=== PATIENT | male | born 1990 | race Caucasian/White ===

== ENCOUNTER 2018-05-06 21:27 | Emergency (ER) | payer BC, SELFPAY ==
[2018-05-06 21:27] VITALS: BP 143/88; PULSE 81; RESP 16; TEMP 36.9; O2SAT 99; BMI 28.5
--- NOTE | 2018-05-06 21:40 | EKG12_ITS ---
Test Reason : CHEST PAIN Blood Pressure : / mmHG Vent. Rate : 074 BPM Atrial Rate : 074 BPM P-R Int : 128 ms QRS Dur : 092 ms QT Int : 384 ms P-R-T Axes : 040 076 016 degrees QTc Int : 426 ms Normal sinus rhythm Normal ECG Confirmed by LONI AARON, JALIL ([id number]), scientific publications editor NKECHI WINCHESTER ([id number]) on 05/11/2018 1:27:22 PM Referred By: ANNE MARIE Confirmed By:JALIL IVEY MD
[2018-05-06] MEDS: Ketorolac 30 MG/ML Syringe IM (22:09)
--- NOTE | 2018-05-06 22:10 | RAD_ITS ---
STUDY: X-RAY CHEST REASON FOR EXAM: Male, 27 years old. Right-sided chest pain with deep breathing. TECHNIQUE: 2 views COMPARISON: None. FINDINGS: Negative for pneumothorax, pneumomediastinum or subcutaneous emphysema. The lungs are clear and expanded. There is no demonstrated pleural abnormality. Normal size heart. Normal mediastinum and yasmine. Normal visualized pulmonary arteries. Normal visualized aortic arch and descending thoracic aorta. Normal visualized thoracic spine. Normal visualized ribs, clavicles, and shoulders. There is no demonstrated abnormality of the visualized soft tissue structures of the upper abdomen. RAD/Chest PA and Lateral IMPRESSION: Normal x-ray examination of the chest. Electronically Signed: Zully Barry MD at 22:55 EST , Service support ,
--- NOTE | 2018-05-06 22:56 | ED.VISSUMM ---
- ER Visit Summary Date of Service: 05/06/18 Chief Complaint: Chest pain History of Present Illness: The patient is a 27 M with 2-hour history of sharp stabbing right-sided chest pain worse with movement and bringing his arm up. No history of travel no leg pain calf pain palpitations no fever or chills he denies any shortness of breath. Denies any calf pain. Physical Examination: Otherwise normal exam, patient is clear lungs bilaterally has anterior chest wall pain which is quite reproducible to palpation as well as moving his arm up and way. No rash seen over this region. No calf tenderness or pedal edema. Emergency Department Course and Treatment: Patient has an unremarkable EKG with normal ID QTC intervals, ventricular rate is in the 70s. Chest x-ray is unremarkable this is likely secondary to inflammation I gave him Toradol and I will place him on Naprosyn for home next is likely pleurisy Discharge stable condition Impression: [Pleurisy] This note was generated with [employer] dictation software. It may contain incorrect words, spelling, and punctuation that were not noted in review of the chart prior to signing ED Disposition - Plan for ED Patient: Disposition: Home or Assisted Living Instructions: ED Strain Chest Wall, ED Chest Pain Pleurisy Prescriptions: Naproxen [Naprosyn] 500 mg PO BID PRN #20 tab Referrals: Care Physician,No Primary [Primary Care Provider] -
--- NOTE | 2018-05-06 22:59 | ED.DCSUM_ITS ---
- ER Visit Summary Date of Service: 05/06/18 Chief Complaint: Chest pain History of Present Illness: The patient is a 27 M with 2-hour history of sharp stabbing right-sided chest pain worse with movement and bringing his arm up. No history of travel no leg pain calf pain palpitations no fever or chills he denies any shortness of breath. Denies any calf pain. Physical Examination: Otherwise normal exam, patient is clear lungs bilaterally has anterior chest wall pain which is quite reproducible to palpation as well as moving his arm up and way. No rash seen over this region. No calf tenderness or pedal edema. Emergency Department Course and Treatment: Patient has an unremarkable EKG with normal AR QTC intervals, ventricular rate is in the 70s. Chest x-ray is unremarkable this is likely secondary to inflammation I gave him Toradol and I will place him on Naprosyn for home next is likely pleurisy Discharge stable condition Impression: [Pleurisy] This note was generated with [employer] dictation software. It may contain incorrect words, spelling, and punctuation that were not noted in review of the chart prior to signing ED Disposition - Plan for ED Patient: Disposition: Home or Assisted Living Instructions: ED Strain Chest Wall, ED Chest Pain Pleurisy Prescriptions: Naproxen [Naprosyn] 500 mg PO BID PRN #20 tab Referrals: Care Physician,No Primary [Primary Care Provider] -
[2018-05-06 23:39] VITALS: BP 123/82; PULSE 65; RESP 16; O2SAT 97
== END 2018-05-06 23:40 | disposition home or self-care (01) ==
PROVIDERS: Emergency Provider Emergency Medicine
DX: R09.1 Pleurisy (principal); Z72.0 Tobacco use
CPT/HCPCS: 71046; 93005; 96372; 99283

== ENCOUNTER → 2021-01-23 08:13 | Outpatient (CLI) | payer BC, SELFPAY ==
[2021-01-23 13:21] LABS: Probe Check PASS; Specimen Processing Control PASS
== END ==
PROVIDERS: Referring Provider Student in an Organized Health Care Education/Training Program; Visit Provider Student in an Organized Health Care Education/Training Program
DX: Z11.59 Encounter for screening for other viral diseases (principal)
CPT/HCPCS: 87635; C9803; U0005; U0003

== ENCOUNTER 2021-05-07 14:18 | Outpatient (CLI) | payer BC, SELFPAY | END 2021-05-07 23:59 | disposition short-term general hospital (02) | PROVIDERS: Referring Provider Student in an Organized Health Care Education/Training Program; Visit Provider Student in an Organized Health Care Education/Training Program | DX: Z20.822 Contact with and (suspected) exposure to COVID-19 (principal) | CPT/HCPCS: 87635; U0003; U0005 ==

== ENCOUNTER 2023-09-05 20:09 | Emergency (ER) | payer BC, SELFPAY ==
[2023-09-05 20:10] VITALS: BP 135/88; PULSE 91; RESP 18; TEMP 36.3; O2SAT 95; BMI 26.9
--- NOTE | 2023-09-05 20:26 | CT_ITS ---
EXAM: CT HEAD WITHOUT INTRAVENOUS CONTRAST CLINICAL INDICATION: trauma TECHNIQUE: Multiple axial images were obtained of the head without intravenous contrast. This CT exam was performed using one or more of the following dose reduction techniques: automated exposure control, adjustment of the mA and/or kV according to patient size, and/or use of iterative reconstruction technique. RADIATION DOSE: CTDIvol = 44.99 mGy, DLP = 812.98 mGy-cm COMPARISON: No relevant prior studies available. FINDINGS: BRAIN AND EXTRA-AXIAL SPACES: Unremarkable. No intra- or extra-axial hemorrhage. No evidence of acute infarct. No intracranial mass or mass effect. There is preservation of the moore/white matter interface. Posterior fossa structures are unremarkable. Ventricles are appropriate for age. No hydrocephalus. Basal cisterns are patent. BONES/JOINTS: Unremarkable. No discrete lytic or blastic abnormalities. SINUSES: Unremarkable as visualized. Clear. MASTOID AIR CELLS: Unremarkable. Clear. ORBITS: Visualized globes, extraocular muscles, optic nerves and retrobulbar fat appear unremarkable. CT/Brain/Head without Contrast IMPRESSION: Negative head/brain CT without intravenous contrast. Electronically Signed: Crispin Covington MD at 21:24 EDT ,
--- NOTE | 2023-09-05 20:26 | CT_ITS ---
EXAM: CT MAXILLOFACIAL WITHOUT INTRAVENOUS CONTRAST CLINICAL INDICATION: trauma TECHNIQUE: Helically acquired images were obtained of the face without intravenous contrast. This CT exam was performed using one or more of the following dose reduction techniques: automated exposure control, adjustment of the mA and/or kV according to patient size, and/or use of iterative reconstruction technique. RADIATION DOSE: CTDIvol = 29.38 mGy, DLP = 569.49 mGy-cm COMPARISON: No relevant prior studies available. FINDINGS: BONES/JOINTS: See below. SOFT TISSUES: Left facial soft tissue swelling. No underlying fracture. No discrete fluid collections. ORBITS: Unremarkable. Both globes are unremarkable. Extraocular muscles are normal. Retrobulbar fat appears unremarkable. SINUSES: Mild maxillary sinus disease. MASTOID AIR CELLS: Unremarkable as visualized. Clear. DENTAL: No acute findings. No periodontal osseous erosion. CT/Sinus/Facial Bone IMPRESSION: 1. Left facial soft tissue swelling. No underlying fracture. 2. Mild maxillary sinus disease. Electronically Signed: Crispin Covington MD at 21:27 EDT ,
--- NOTE | 2023-09-05 20:27 | EDS_ITS ---
HPI History of Present Illness Chief Complaint: Head Injury Informant: patient Onset/Context/Timing Onset: Today Narrative Narrative: Patient presents secondary to head injury. He was playing in a softball game, running to first when he got hit on the left side of the head just behind the lateral canthus of his left eye. He was not wearing a helmet at the time. He did not lose consciousness. He does have focal pain and swelling to that area. He denies vision change. [facility] Medical History Seizures Home Medications ?Medication ?Instructions ?Recorded ?Last Taken ?Type NK 09/05/23 Unknown History Allergy/AdvReac Type Severity Reaction Status Date / Time No Known Allergies Allergy Verified 09/05/23 20:10 Social History Smoking Status: Current every day smoker tobacco type: cigarettes ROS ROS ED Constitutional Constitutional ED: Denies chills or fever(s) Eyes Eyes: Denies change in vision ENT ENT ED: Denies rhinorrhea or sore throat Cardiovascular Cardiovascular: Denies chest pain Respiratory/Chest Respiratory/Chest: Denies cough or dyspnea Gastrointestinal Gastrointestinal: Denies abdominal pain, nausea or vomiting Musculoskeletal Musculoskeletal: Reports other Details: Mild left jaw pain ; Denies back pain or extremity pain Integumentary Reports Abrasions; Denies rash Neurologic Neurologic: Reports headache(s); Denies weakness Psychiatric Psychiatric: Denies anxiety or depression Allergic/Immunologic Allergic/Immunologic ED: Denies lip swelling or urticaria EXAM Physical Exam Const Vital Signs: 09/05/23 20:10 09/05/23 20:29 Temperature 97.3 F L Temperature Source Temporal Pulse Rate 91 Respiratory Rate 18 Respiratory Effort Normal Non-Labored Respiratory Depth Normal Respiratory Pattern Normal Blood Pressure 135/88 H Blood Pressure Mean 103 Pulse Ox 95 Oxygen Delivery Method Room Air Room Air Positive well nourished and well developed General Appearance ED: well developed HEENT HEENT Narrative: Edema and early ecchymosis to the lateral left face just lateral to the left eye. Area slightly tender to touch. Eyes PERRL and EOMs intact bilaterally Neck full ROM Chest Wall inspection of chest normal and palpation of chest normal Resp normal respiratory effort and clear to auscultation bilaterally Cardio regular rhythm Rate: regular rate GI non-tender Palpation: soft Back/Spine normal to inspection Extremity normal to inspection Neuro oriented x3, moves all extremities, no focal motor deficits and no sensory deficits noted MDM MDM MDM Narrative Medical decision making narrative: Patient given Tylenol for pain along with ice pack. CT scan of the brain and facial bones obtained to evaluate for potential fracture, bleed. History & Record Review Discussion w/independent historian: Patient and Family Radiography Diagnostic Testing: Clinical Impression(s) from Imaging Studies Brain CT 09/05/23 20:26 IMPRESSION: Negative head/brain CT without intravenous contrast. Electronically Signed: Crispin Covington MD at 21:24 EDT , Facial/Sinus 09/05/23 20:26 IMPRESSION: 1. Left facial soft tissue swelling. No underlying fracture. 2. Mild maxillary sinus disease. Electronically Signed: Crispin Covington MD at 21:27 EDT , Treatment and Re-Evaluation Narrative: CT scan of the head reveals no acute findings. CT scan of the facial bones reveals left facial soft tissue swelling with no underlying fracture. Mild maxillary sinus disease. Test results discussed with patient and family at bedside. He will continue supportive care at home with Tylenol and/or ibuprofen. Return instructions provided. Discharge Plan Triage Chief Complaint: Head Injury ED Provider: Payal Soto Dx/Rx/DC Orders Clinical Impression: Closed head injury, Contusion of face Instructions: ED Facial Contusion, ED Head Injury (Adult) Prescriptions: No Action NK Primary Care Provider: Care Physician,No Primary Referrals: Dana Zaragoza MD [Med Staff - [employer]] - As Needed Care Physician,No Primary [Primary Care Provider] - Print Language: Slovenian Disposition Disposition: Home, Self Care
[2023-09-05] MEDS: Acetaminophen 500 MG Tablet 1000 MG PO (20:46)
[2023-09-05 21:35] VITALS: BP 132/78; PULSE 66; RESP 17; TEMP 36.7; O2SAT 96
== END 2023-09-05 21:36 | disposition home or self-care (01) ==
PROVIDERS: Emergency Provider Emergency Medicine; Visit Provider Emergency Medicine
DX: S00.83XA Contusion of other part of head, initial encounter (principal); W21.07XA Struck by softball, initial encounter; F17.210 Nicotine dependence, cigarettes, uncomplicated; S09.90XA Unspecified injury of head, initial encounter
CPT/HCPCS: 70450; 70486; 99282